=== PATIENT | female | born 1985 | race Hispanic/Latino ===

== ENCOUNTER → 2018-12-11 | Day surgery (SDC) | payer OTHER ==
[~2018-12-11] MED LIST: FENTANYL CITRATE/PF 100MCG/2 ML INJ ONE; METFORMIN HCL500 MG PO; MIDAZOLAM HCL 2 MG/2 ML VIAL ONE
--- NOTE | 2018-12-11 19:40 | Operative Report ---
DATE OF PROCEDURE: 12/11/2018 SURGEON: Colton Sexton MD PROCEDURE: Esophagogastroduodenoscopy with biopsies and a colonoscopy with polypectomy and biopsies. INDICATIONS FOR EGD: Upper abdominal pain, bloating, nausea. INDICATIONS FOR COLONOSCOPY: Bloody diarrhea and family history of colon cancer. MEDICATIONS: The patient was done under MAC, please see anesthesiologist's note. PROCEDURE IN DETAIL: With the patient in left lateral decubitus position, the flexible fiberoptic Olympus gastroscope was introduced into the esophagus under direct visualization without any difficulty. There was some patchy erythema noted in distal esophagus. The scope was then advanced with ease into the stomach. Mucosa overlying the antrum and the body revealed some patchy erythema and low-grade to moderate edema and biopsies were obtained and sent to stain for H pylori. The mucosa overlying the body along the anterior wall of the stomach appeared somewhat nodular and biopsies were obtained. The pylorus was of normal contour and shape, was intubated with ease, and the scope was advanced all the way to the second portion of the duodenum. Biopsies were obtained from the second portion and duodenal bulb to rule out sprue. The scope was then withdrawn back into the stomach and retroflexed. Mucosa overlying the fundus appeared to be within normal limits. A minute nodule was noted in the cardia and that was biopsied. The scope was then straightened out and it was subsequently withdrawn. The patient tolerated procedure well. IMPRESSION: 1. Mild distal esophagitis. 2. Gastritis, biopsied. Biopsies sent to stain for H pylori. 3. Nodule, cardia, biopsied. 4. Rule out sprue. PLAN: Follow up histology. Initiate Protonix 40 mg one p.o. q.a.m. a.c. The patient was then turned around after adequate lubrication of the anal canal. The flexible fiberoptic Olympus colonoscope was inserted into the rectum with ease and advanced all the way to the cecum. Mucosa overlying the cecum appeared to be within normal limits. The ileocecal valve was intubated and the scope was advanced into the terminal ileum. Biopsies were obtained. The scope was then withdrawn back into the colon. It was then withdrawn slowly. Mucosa overlying the ascending and the transverse appeared to be within normal limits. Mild patchy inflammatory changes were noted in the left colon and random biopsies were obtained. One polyp was removed with the cold biopsy forceps from the sigmoid colon and one polyp was hot biopsied from the rectum. The scope was then retroflexed into the distal rectum and moderate-sized internal hemorrhoids were noted, none of which was actively bleeding. The scope was then straightened out and it was subsequently withdrawn after securing an adequate stool specimen that was sent for the appropriate stool studies. The patient tolerated the procedure well. IMPRESSION: 1. Mild patchy left-sided colitis. 2. Sigmoid colon polyp, removed per the cold biopsy forceps. 3. Rectal polyp, hot biopsied. 4. Internal hemorrhoids, none actively bleeding. PLAN: Follow up histology. Follow up stool studies. Start Bentyl 10 mg one p.o. t.i.d., and align one p.o. b.i.d. Colton Sexton MD [facility] [place]/MODL /[id number] cc: Laverne Carbajal MD
[2018-12-11 19:47] LABS: WBC,FECAL (FECAL LACTOFERRIN) POSITIVE (NEGATIVE)
[2018-12-12 12:39] LABS: C DIFFICILE TOXIN A&B AMP PROB NEGATIVE (NEGATIVE)
--- OUTSIDE RECORDS SUMMARY | 2018-12-13 15:08 | XMS REPORT | Clinical Summary ---
Author Author [facility] Address Unknown Phone Unavailable Care Team Providers Care Api Developer Name Role Phone Laverne Bowie MD PCP Allergies No Known Allergies Medications End Date Status Medication Sig Dispensed Refills Start Date 12/17/2018 Active traMADol (ULTRAM) 50 mg Take 1 tablet 20 tablet 0 tablet (50 mg total) 9 by mouth every 6 (six) hours as needed for Pain for up to 10 days. Max Daily Amount: 200 mg 12/14/2018 Active ondansetron (ZOFRAN ODT) Take 1 tablet 15 tablet 0 4 MG disintegrating (4 mg total) 9 tablet by mouth every 8 (eight) hours as needed for Nausea for up to 7 days. Active Problems Not on file Encounters Care Team Description Date Type Specialty Theron Brumfield MD Abdominal pain, acute, periumbilical (Primary Dx); Melena; Acute GI bleeding 12/06/2018 Emergency Emergency Medicine - 12/07/2018 after 12/12/2017 Social History Date Tobacco Use Types Packs/Day Years Used Never Assessed Sex Assigned at Date Recorded Not on file Industry Job Start Date Occupation Not on file Not on file Not on file Travel End Travel History Travel Start No recent travel history available. Last Filed Vital Signs Time Taken Vital Sign Reading 12/07/2018 2:20 AM CDT Blood Pressure 115/57 12/07/2018 2:20 AM CDT Pulse 86 12/07/2018 2:20 AM CDT Temperature 37.1 C (98.7 F) 12/07/2018 2:20 AM CDT Respiratory Rate 16 12/07/2018 2:20 AM CDT Oxygen Saturation 97% - Inhaled Oxygen - Concentration - Weight - - Height - - Body Mass Index - Plan of Treatment Not on file Procedures Comments Procedure Name Priority Date/Time Associated Diagnosis TRANSFUSION SERVICE 12/07/2018 REPORT - SCAN 5:[address] ABDOMEN/PELVIS WITH IV STAT 12/07/2018 CONTRAST 1:10 AM CDT SCREEN, URINE STAT 12/06/2018 11:49 PM CDT LIPASE STAT 12/06/2018 10:09 PM CDT ABORH, MANUAL STAT 12/06/2018 7:42 PM CDT CBC W/PLT COUNT & AUTO STAT 12/06/2018 DIFFERENTIAL 7:18 PM CDT TYPE AND SCREEN, STAT 12/06/2018 AUTOMATED 7:18 PM CDT HEPATIC FUNCTION PANEL STAT 12/06/2018 7:18 PM CDT PT/APTT STAT 12/06/2018 7:18 PM CDT BASIC METABOLIC PANEL (7) STAT 12/06/2018 7:18 PM CDT CBC W/PLT COUNT & AUTO STAT 12/06/2018 DIFFERENTIAL 7:18 PM CDT after 12/12/2017 Results * TRANSFUSION SERVICE REPORT - SCAN (12/07/2018 5:58 PM CDT) Narrative Performed At * CT abdomen/pelvis with IV contrast (12/07/2018 1:10 AM CDT) Specimen Narrative Performed At FINAL REPORT [facility] CLINICAL HISTORY: Acute abdominal pain, hematochezia. FINDINGS: Multiple axial images of the abdomen and pelvis were performed after the uncomplicated administration of IV contrast. Oral contrast was not given. This exam was performed according to our departmental dose-optimization program, which includes automated exposure control, adjustment of the mA and/or kV according to patient size and/or use of the iterative reconstruction technique. Comparison:None. Lower chest: Clear lungs. No pleural effusion or pneumothorax. Visualized cardiac contours normal. Liver: Hepatic steatosis Gallbladder and biliary tree: No significant findings. Spleen: No significant findings. Adrenal Glands: No significant findings. Kidneys and ureters: No significant findings. Stomach and Duodenum: No significant findings. Pancreas: No significant findings. Bowel: No significant findings. Appendix: Nonvisualized. No right lower quadrant inflammatory changes. Bladder: No significant findings. Major vascular structures: No significant findings. Reproductive organs: No significant findings. Other: No free air, fluid or adenopathy Skeleton: No acute bony abnormality. IMPRESSION: No acute abnormality to explain the patient's symptoms. Hepatic steatosis. Signed: Shelly Hodges MD Report Verified Date/Time:12/07/2018 01:53:56 Reading Location: [address] Reading Room Procedure Note Interface, External Ris In - 12/07/2018 1:56 AM CDT FINAL REPORT CLINICAL HISTORY: Acute abdominal pain, hematochezia. FINDINGS: Multiple axial images of the abdomen and pelvis were performed after the uncomplicated administration of IV contrast. Oral contrast was not given. This exam was performed according to our departmental dose-optimization program, which includes automated exposure control, adjustment of the mA and/or kV according to patient size and/or use of the iterative reconstruction technique. Comparison:None. Lower chest: Clear lungs. No pleural effusion or pneumothorax. Visualized cardiac contours normal. Liver: Hepatic steatosis Gallbladder and biliary tree: No significant findings. Spleen: No significant findings. Adrenal Glands: No significant findings. Kidneys and ureters: No significant findings. Stomach and Duodenum: No significant findings. Pancreas: No significant findings. Bowel: No significant findings. Appendix: Nonvisualized. No right lower quadrant inflammatory changes. Bladder: No significant findings. Major vascular structures: No significant findings. Reproductive organs: No significant findings. Other: No free air, fluid or adenopathy Skeleton: No acute bony abnormality. IMPRESSION: No acute abnormality to explain the patient's symptoms. Hepatic steatosis. Signed: Shelly Hodges MD Report Verified Date/Time: 12/07/2018 01:53:56 Reading Location: [address] Reading Room Performing Organization Address City/State/Zipcode Phone Number GE RIS * Screen, urine (12/06/2018 11:49 PM CDT) Preg Test, Ur Negative [facility] Specimen Urine Performing Organization Address [facility] Phone Number [address] * Lipase (12/06/2018 10:09 PM CDT) Lipase 32 8 - 78 U/L [facility] Specimen Blood Performing Organization Address City/[facility] Phone Number [address] * ABORH, manual (12/06/2018 7:42 PM CDT) ABO Grouping A [facility] Rh Factor POS [facility] Specimen Blood Performing Organization Address [facility] Phone Number [address] * Type and screen, automated ([facility] and [facility] only) (12/06/2018 7:18 PM CDT) ABO/RH AUTOMATED (BEAKER) A POSITIVE [facility] Ab Scrn NEGATIVE [facility] Specimen Blood Performing Organization Address [facility] Phone Number [address] * PT/aPTT (12/06/2018 7:18 PM CDT) Protime 12.2 11.9 - 14.2 seconds [facility] INR 0.9 <=5.9 [facility] PTT 25.5 22.5 - 36.0 seconds [facility] Specimen Blood Narrative Performed At Effective 10/27/2018: PT Reference Range Change [facility] New: 11.9-14.2Previous: 11.7-14.7 [facility] RECOMMENDED COUMADIN/WARFARIN INR THERAPY RANGES STANDARD DOSE: 2.0-3.0Includes: PROPHYLAXIS for venous thrombosis, systemic embolization; TREATMENT for venous thrombosis and/or pulmonary embolus. HIGH RISK: Target INR is 2.5-3.5 for patients wiht mechanical heart valves. Performing Organization Address City/State/Zipcode Phone Number [facility] [address] [place] [address] [facility] * CBC with platelet count + automated diff (12/06/2018 7:18 PM CDT) WBC 9.8 3.5 - 10.5 K/L [facility] RBC 4.29 3.93 - 5.22 M/L [facility] Hemoglobin 12.0 11.2 - 15.7 GM/DL [facility] Hematocrit 37.7 34.1 - 44.9 % [facility] MCV 87.9 79.4 - 94.8 fL [facility] MCH 28.0 25.6 - 32.2 pg [facility] MCHC 31.8 (L) 32.2 - 35.5 GM/DL [facility] RDW 19.1 (H) 11.7 - 14.4 % [facility] Platelets 321 150 - 450 K/CU MM [facility] MPV 8.6 (L) 9.4 - 12.3 fL [facility] nRBC 0 0 - 0 /100 WBC [facility] % Neutros 76 % [facility] % Lymphs 13 % [facility] % Monos 9 % [facility] % Eos 1 % [facility] % Baso 0 % [facility] # Neutros 7.44 (H) 1.56 - 6.13 K/L [facility] # Lymphs 1.30 1.18 - 3.74 K/L [facility] # Monos 0.90 (H) 0.24 - 0.36 K/L [facility] # Eos 0.12 0.04 - 0.36 K/L [facility] # Baso 0.02 0.01 - 0.08 K/L [facility] Immature 0 0 - 1 % [facility] Granulocytes-Relative [facility] Specimen Blood Performing Organization Address City/[facility] Phone Number [facility] [address] [place] [address] [facility] * Hepatic function panel (12/06/2018 7:18 PM CDT) Protein, Total 8.4 (H)Comment: Specimen 6.0 - 8.3 gm/dL [facility] slightly hemolyzed [facility] Albumin 4.2Comment: Specimen slightly 3.5 - 5.0 g/dL [facility] Total Bilirubin 0.4Comment: Specimen slightly 0.2 - 1.2 mg/dL [facility] Bilirubin, Direct 0.1Comment: Specimen slightly 0.1 - 0.5 mg/dL [facility] Alkaline Phosphatase 128 40 - 150 U/L [facility] AST 54 (H)Comment: Specimen 5 - 34 U/L [facility] slightly hemolyzed [facility] ALT 78 (H)Comment: Specimen 6 - 55 U/L [facility] slightly hemolyzed [facility] Specimen Blood Performing Organization Address City/[facility]/Zipcode Phone Number [facility] [address] [place] [address] [facility] * Basic Metabolic Panel (12/06/2018 7:18 PM CDT) Sodium 139 136 - 145 meq/L [facility] Potassium 4.1Comment: Specimen slightly 3.5 - 5.1 meq/L [facility] hemolyzed [facility] Chloride 104 98 - 107 meq/L [facility] CO2 25 22 - 29 meq/L [facility] BUN 9 7 - 21 mg/dL [facility] Creatinine 0.69Comment: Specimen slightly 0.57 - 1.25 mg/dL [facility] hemolyzed [facility] Glucose 90 70 - 105 mg/dL [facility] Calcium 9.7 8.4 - 10.2 mg/dL [facility] EGFR Comment: INSUFFICIENT CLINICAL mL/min/1.[address] [facility] DATA TO CALCULATE ESTIMATED [facility] GFR. Specimen Blood Performing Organization Address City/State/Zipcode Phone Number [facility] [address] [place] [address] [facility] after 12/12/2017 Insurance Payer Benefit Subscriber ID Type Phone Address Plan / Group [employer] - MGD CARE CIGNA PPO xxxxxxxxxxx PPO (Home) [place] [address]
--- OUTSIDE RECORDS SUMMARY | 2018-12-13 15:08 | XMS REPORT | Clinical Summary ---
Author Author [facility] Address Unknown Phone Unavailable Care Team Providers Care Recreation Facilities Supervisor Name Role Phone PCP Unavailable Allergies Not on File Medications Not on file Active Problems Not on file Encounters Care Team Description Date Type Specialty 03/04/2018 Clinical Corporate Wellness Support after 12/12/2017 Immunizations Name Dates Previously Given Next Due FLUCELVAX QUAD PF (0.5mL 03/04/2018 syringe) Social History Date Tobacco Use Types Packs/Day Years Used Never Assessed Sex Assigned at Date Recorded Not on file Industry Job Start Date Occupation Not on file Not on file Not on file Travel End Travel History Travel Start No recent travel history available. Last Filed Vital Signs Not on file Plan of Treatment Health Maintenance Due Date Last Done Comments INFLUENZA VACCINE 12/30/2018 03/04/2018 Results Not on fileafter 12/12/2017 Insurance Type Payer Benefit Subscriber ID Effective Phone Address Plan / Dates Group HMO CIGNA CIGNA OPEN xxxxxxxxxxx [id number] ACCESS/NET resent WORK Advance Directives Patient has advance care planning documents on file. For more information, janine espinoza contact: Dillan Henning [address] [place] [address]
--- OUTSIDE RECORDS SUMMARY | 2018-12-13 15:09 | XMS REPORT ---
Author Author [facility] Address Unknown Phone Unavailable Care Team Providers Care Housesmith Name Role Phone THOE HORN Unavailable Unavailable Problems This patient has no known problems. Allergies, Adverse Reactions, Alerts This patient has no known allergies or adverse reactions. Medications This patient has no known medications. Results Test Description Test Time Test Comments Text Results Atomic Results Result Comments CT, ABDOMEN 2018-12-07 01:53:00 Reason for exam:->ABDOMINAL PAIN, bloody stool x1 todayIs the patient ?->UnknownWhat is the patient's sedation requirement?->No Sedation FINAL REPORT CLINICAL HISTORY: Acute abdominal pain, [...] explain the patient's symptoms. Hepatic steatosis. Signed: Marcello Sanford Verified Date/Time: 12/07/2018 01:53:56 Reading Location: [address] Room EN, URINE 2018-12-07 00:10:00 TEST URINE (BEAKER) (test whns=594) Negative [id number] 22:33:00* Test Item Value Reference Range Comments LIPASE (BEAKER) (test lwgh=167) 32 U/L 8-78 BASIC METABOLIC [id number] 19:48:00* Test Item Value Reference Range Comments SODIUM (BEAKER) (test pogx=996) 139 meq/L 136-145 POTASSIUM (BEAKER) (test uosg=581) 4.1 meq/L 3.5-5.1 Specimen slightly hemolyzed CHLORIDE (BEAKER) (test hjbi=130) 104 meq/L 98-107 CO2 (BEAKER) (test phrh=455) 25 meq/L 22-29 BLOOD UREA NITROGEN (BEAKER) (test jhln=372) 9 mg/dL 7-21 CREATININE (BEAKER) (test mjqv=781) 0.69 mg/dL 0.57-1.25 Specimen slightly hemolyzed GLUCOSE RANDOM (BEAKER) (test wbqz=715) 90 mg/dL 70-105 CALCIUM (BEAKER) (test ojms=909) 9.7 mg/dL 8.4-10.2 EGFR (BEAKER) (test jrzh=7231) mL/min/1.73 sq m INSUFFICIENT CLINICAL DATA TO CALCULATE ESTIMATED GFR. HEPATIC FUNCTION [id number] 19:47:00* Test Item Value Reference Range Comments TOTAL PROTEIN (BEAKER) (test rhoa=505) 8.4 gm/dL 6.0-8.3 Specimen slightly hemolyzed ALBUMIN (BEAKER) (test krys=3788) 4.2 g/dL 3.5-5.0 Specimen slightly hemolyzed BILIRUBIN TOTAL (BEAKER) (test rwfk=382) 0.4 mg/dL 0.2-1.2 Specimen slightly hemolyzed BILIRUBIN DIRECT (BEAKER) (test wyjv=887) 0.1 mg/dL 0.1-0.5 Specimen slightly hemolyzed ALKALINE PHOSPHATASE (BEAKER) (test afmt=123) 128 U/L 40-150 AST (SGOT) (BEAKER) (test asrb=437) 54 U/L 5-34 Specimen slightly hemolyzed ALT (SGPT) (BEAKER) (test ojbs=506) 78 U/L 6-55 Specimen slightly hemolyzed PT/[id number] 19:36:00* Test Item Value Reference Range Comments PROTIME (BEAKER) (test tctt=001) 12.2 seconds 11.9-14.2 INR (BEAKER) (test qrxw=708) 0.9 <=5.9 PARTIAL THROMBOPLASTIN TIME (BEAKER) (test alvl=028) 25.5 seconds 22.5-36.0 Effective 10/27/2018: PT Reference Range ChangeNew: 11.9-14.2 Previous: 11.7-14. 7RECOMMENDED COUMADIN/WARFARIN INR THERAPY RANGESSTANDARD DOSE: 2.0-3.0 Include s: PROPHYLAXIS for venous thrombosis, systemic embolization; TREATMENT for venou s thrombosis and/or pulmonary embolus.HIGH RISK: Target INR is 2.5-3.5 for patie nts wiht mechanical heart valves.CBC W/PLT COUNT & AUTO [id number] 19:26:00* Test Item Value Reference Range Comments WHITE BLOOD CELL COUNT (BEAKER) (test bmoo=611) 9.8 K/ L 3.5-10.5 RED BLOOD CELL COUNT (BEAKER) (test pbyj=052) 4.29 M/ L 3.93-5.22 HEMOGLOBIN (BEAKER) (test zmag=880) 12.0 GM/DL 11.2-15.7 HEMATOCRIT (BEAKER) (test iglf=514) 37.7 % 34.1-44.9 MEAN CORPUSCULAR VOLUME (BEAKER) (test xfke=291) 87.9 fL 79.4-94.8 MEAN CORPUSCULAR HEMOGLOBIN (BEAKER) (test auta=844) 28.0 pg 25.6-32.2 MEAN CORPUSCULAR HEMOGLOBIN CONC (BEAKER) (test dsts=266) 31.8 GM/DL 32.2-35.5 RED CELL DISTRIBUTION WIDTH (BEAKER) (test btik=930) 19.1 % 11.7-14.4 PLATELET COUNT (BEAKER) (test cwim=994) 321 K/CU MM 150-450 MEAN PLATELET VOLUME (BEAKER) (test dnxi=131) 8.6 fL 9.4-12.3 NUCLEATED RED BLOOD CELLS (BEAKER) (test mivs=203) 0 /100 WBC 0-0 NEUTROPHILS RELATIVE PERCENT (BEAKER) (test vmoc=280) 76 % LYMPHOCYTES RELATIVE PERCENT (BEAKER) (test gzji=475) 13 % MONOCYTES RELATIVE PERCENT (BEAKER) (test hjjc=915) 9 % EOSINOPHILS RELATIVE PERCENT (BEAKER) (test pwqt=182) 1 % BASOPHILS RELATIVE PERCENT (BEAKER) (test wglm=310) 0 % NEUTROPHILS ABSOLUTE COUNT (BEAKER) (test jwjy=794) 7.44 K/ L 1.56-6.13 LYMPHOCYTES ABSOLUTE COUNT (BEAKER) (test puce=543) 1.30 K/ L 1.18-3.74 MONOCYTES ABSOLUTE COUNT (BEAKER) (test gylu=911) 0.90 K/ L 0.24-0.36 EOSINOPHILS ABSOLUTE COUNT (BEAKER) (test qlor=739) 0.12 K/ L 0.04-0.36 BASOPHILS ABSOLUTE COUNT (BEAKER) (test jxot=380) 0.02 K/ L 0.01-0.08 IMMATURE GRANULOCYTES-RELATIVE PERCENT (BEAKER) (test zlwj=7359) 0 % 0-1
== END | disposition home or self-care (01) ==
LOC: OR 12:53
PROVIDERS: ATTEND Internal Medicine Gastroenterology
DX: K29.50 Unspecified chronic gastritis without bleeding (principal); K63.5 Polyp of colon; K62.1 Rectal polyp; K51.50 Left sided colitis without complications; B96.81 Helicobacter pylori [H. pylori] as the cause of diseases classified elsewhere; K20.9 Esophagitis, unspecified; K31.89 Other diseases of stomach and duodenum; K64.8 Other hemorrhoids; E66.01 Morbid (severe) obesity due to excess calories; R73.03 Prediabetes; F41.9 Anxiety disorder, unspecified; Z01.810 Encounter for preprocedural cardiovascular examination; Z79.84 Long term (current) use of oral hypoglycemic drugs; Z68.32 Body mass index [BMI] 32.0-32.9, adult; Z80.0 Family history of malignant neoplasm of digestive organs
CPT/HCPCS: 36415; 43239; 45380; 45384; 81025; 82948; 83630; 83993; 87045; 87177; 87328; 87493; 93005; J2250; J3010